=== PATIENT | female | born 1980 | race Caucasian/White ===

== ENCOUNTER 2017-07-19 18:41 | Emergency (ER) | payer OTHER ==
[~2017-07-19] VITALS: Ht 172.7 cm; Wt 111.1 kg
[2017-07-19] MEDS ORDERED: BUSPIRONE HCL10 MG PO (19:04)
[2017-07-19] MEDS ORDERED: LEXAPRO20 MG PO (19:04)
[2017-07-19 19:16] VITALS: BP 136/87
== END 2017-07-19 19:16 | disposition home or self-care (01) ==
LOC: ER 18:41
DX: F32.9 Major depressive disorder, single episode, unspecified (principal); Z76.0 Encounter for issue of repeat prescription; F17.210 Nicotine dependence, cigarettes, uncomplicated

== ENCOUNTER 2017-09-25 10:38 | Emergency (ER) | payer OTHER ==
[~2017-09-25] VITALS: Ht 172.7 cm; Wt 113.4 kg
[~2017-09-25 10:38] MED LIST: BUSPIRONE HCL10 MG PO; LEXAPRO20 MG PO
[2017-09-25] MEDS ORDERED: LEXAPRO20 MG PO (10:55)
[2017-09-25] MEDS ORDERED: BUSPIRONE HCL10 MG PO (10:55)
[2017-09-25] MEDS ORDERED: MOBIC7.5 MG PO (10:55)
[2017-09-25 11:21] VITALS: BP 121/80
== END 2017-09-25 11:22 | disposition home or self-care (01) ==
LOC: ER 10:38
DX: Z76.0 Encounter for issue of repeat prescription (principal); F32.9 Major depressive disorder, single episode, unspecified; F17.210 Nicotine dependence, cigarettes, uncomplicated

== ENCOUNTER 2019-06-05 00:15 | Emergency (ER) | payer OTHER ==
[~2019-06-05] VITALS: Ht 172.7 cm; Wt 127.0 kg
[~2019-06-05 00:15] MED LIST changes: +MOBIC7.5 MG PO
[2019-06-05] MEDS ORDERED: ZYRTEC10 M5 PO (00:17)
[2019-06-05] MEDS ORDERED: IBUPROFEN 600600 M1 PO (01:53)
[2019-06-05] MEDS ORDERED: ZOFRAN ODT4 MG PO (01:53)
[2019-06-05] MEDS ORDERED: TYLENOL EXTRA500 MG PO (01:53)
[2019-06-05 02:10] VITALS: BP 143/80
== END 2019-06-05 02:16 | disposition home or self-care (01) ==
LOC: ER 00:15
DX: J10.1 Influenza due to other identified influenza virus with other respiratory manifestations (principal); F17.210 Nicotine dependence, cigarettes, uncomplicated; Z79.899 Other long term (current) drug therapy